=== PATIENT | male | born 1955 | race Caucasian/White ===

== ENCOUNTER 2016-06-25 06:57 | Day surgery (SDC) | payer BC, OTHER ==
[2016-06-25] MEDS ORDERED: PROPOFOL INJ 200 MG/20 ML VIAL IV ONE (07:24)
--- NOTE | 2016-06-25 08:24 | Operative Report ---
Operative Report DATE OF SURGERY: 06/25/16 Operative Report: The risks benefits and alternatives of the procedure explained to the patient in detail and informed consent is obtained that GIF Olympus video scope was inserted into the patient's mouth and hypopharynx the esophagus is identified intubated and insufflated the scope was then advanced through the esophagus stomach and duodenum retroflexion maneuver is done the esophagus stomach and first and second portions of the duodenum examined PREOPERATIVE DIAGNOSIS: Dysphagia POSTOPERATIVE DIAGNOSIS: Schatzki's ring status post breakage. Hiatal hernia. Gastritis OPERATION: EGD with biopsy SURGEON: RONIT SIGALA ANESTHESIA: LMAC TISSUE REMOVED OR ALTERED: Esophageal ring is broken. Gastric biopsies obtained rule out Helicobacter pylori COMPLICATIONS: None. ESTIMATED BLOOD LOSS: none. INTRAOPERATIVE FINDINGS: Schatzki's ring this is broken. First and second portions of the duodenum normal\. Patent esophagus PROCEDURE: Patient tolerated the procedure well. No immediate postprocedure complications are noted. Patient is discharged in good condition. Discharge date 06/25/2016. Discharge diet: Regular. Discharge activity: Regular. 2-3 week follow-up to discuss findings. Patient is instructed to call the office should there be any further problems or questions. We'll await on biopsies.
[2016-06-25 08:54] VITALS: BP 132/75
== END 2016-06-25 08:50 | disposition home or self-care (01) ==
LOC: END 06:57
PROVIDERS: ATTEND Internal Medicine Gastroenterology
PROC: 0DB68ZX Excision of Stomach, Via Natural or Artificial Opening Endoscopic, Diagnostic (ICD-10-PCS; principal; 2016-06-25 08:00)
DX: K22.2 Esophageal obstruction (principal); K31.9 Disease of stomach and duodenum, unspecified; K44.9 Diaphragmatic hernia without obstruction or gangrene; Z79.84 Long term (current) use of oral hypoglycemic drugs; Z79.899 Other long term (current) drug therapy
CPT/HCPCS: 43239; 82962; 88342 ×2; 88305 ×2; J2704

== ENCOUNTER → 2017-10-25 | Day surgery (SDC) | payer BC, OTHER ==
--- NOTE | 2017-10-25 15:30 | RADIOLOGY REPORT (SQ) ---
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 The thyroid gland was reimaged by both myself as well as the technologist. On the left side, only the 2 by 1.7 by 1.4 cm lower pole nodule is identified. More vague hypo echoic area in the midpole left gl and is acoustic shadowing. No discrete nodule in the mid pole left lobe thyroid. Biopsy was perform ed of the lower pole nodule left lobe thyroid nodule. A timeout was performed to confirm the procedure and patient's identity. The skin of the neck was pr epped and draped in sterile fashion and 0.5 mL of 1% lidocaine administered for local anesthesia. U nder sonographic guidance, fine needle aspiration biopsy was performed of the mass in the left lobe o f the thyroid. Five separate aspirations were performed. Hemostasis was obtained with direct manual compression. T here were no immediate complications. LIMITATIONS: None. FINDINGS: PATHOLOGY: Pending. IMPRESSION: ULTRASOUND-GUIDED BIOPSY PERFORMED OF A MASS IN THE LEFT LOBE OF THE THYROID. PATHOLOGY PENDING AT THE TIME OF DICTATION. NO IMMEDIATE POSTPROCEDURE COMPLICATION. COMMENT: Patient medication list reviewed: Yes- Quality ID# [id number]:Eligible professional attests to doc umenting in the medical record they obtained, updated, or reviewed the patient's current medications. TECHNICAL DOCUMENTATION: JOB ID: [id number] [employer]- All Rights Reserved Reading location - IP/workstation name: [email or web address]
== END ==
LOC: RAD 08:43
PROVIDERS: ATTEND Family Medicine
DX: E04.0 Nontoxic diffuse goiter (principal); E04.1 Nontoxic single thyroid nodule
CPT/HCPCS: 60100; 88173